=== PATIENT | female | born 1985 | race African-American/Black ===

== ENCOUNTER 2022-11-19 19:25 | Emergency (ER) | payer OTHER ==
[~2022-11-19] VITALS: Ht 170.2 cm; Wt 56.7 kg
[2022-11-19] MEDS ORDERED: TRAMADOL HCL 50 MG TAB PO STA (21:16)
[2022-11-19] MEDS ORDERED: TRAMADOL/APAP 37.5MG-325MG TAB ONE (21:35)
[2022-11-19] MEDS ORDERED: TRAMADOL HCL 50 MG TAB ONE (21:38)
[2022-11-19] MEDS ORDERED: ULTRAM 50MG50 MG PO (23:42)
[2022-11-19] MEDS ORDERED: Morphine 4mg INJECTION 4 MG/ML INJ IM STA (23:44)
[2022-11-20 01:58] VITALS: BP 129/84
== END 2022-11-20 00:45 | disposition home or self-care (01) ==
LOC: ER 19:32
DX: M54.2 Cervicalgia (principal); M79.622 Pain in left upper arm; M54.6 Pain in thoracic spine; V43.52XA Car driver injured in collision with other type car in traffic accident, initial encounter; Y92.488 Other paved roadways as the place of occurrence of the external cause
CPT/HCPCS: 70450; 72125; 72128; 73060; 73090; 81025; 99283; J2270